=== PATIENT | male | born 1995 | race Caucasian/White ===

== ENCOUNTER 2018-10-01 00:17 | Emergency (ER) | payer SELFPAY ==
[2018-10-01 00:21] VITALS: BP 151/90
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
== END 2018-10-01 01:00 | disposition home or self-care (01) ==
LOC: EDUNIT#
DX: M25.511 Pain in right shoulder (principal); F10.920 Alcohol use, unspecified with intoxication, uncomplicated; V03.10XA Pedestrian on foot injured in collision with car, pick-up truck or van in traffic accident, initial encounter; Y92.410 Unspecified street and highway as the place of occurrence of the external cause; F17.200 Nicotine dependence, unspecified, uncomplicated